=== PATIENT | male | born 1980 | race Caucasian/White ===

== ENCOUNTER 2020-10-22 10:37 | Emergency (ER) | payer OTHER ==
[~2020-10-22 10:37] MED LIST: CYCLOBENZAPRINE10 MG PO; IBU600 MG PO; VOLTAREN EC 5050 MG PO
== END 2020-10-22 13:03 | disposition home or self-care (01) ==
LOC: ER1 10:37
DX: S61.231A Puncture wound without foreign body of left index finger without damage to nail, initial encounter (principal); W26.8XXA Contact with other sharp object(s), not elsewhere classified, initial encounter
CPT/HCPCS: 73140; 90715; 99283